=== PATIENT | female | born 1960 | race Caucasian/White ===

== ENCOUNTER → 2017-02-26 | Outpatient (CLI) | payer BC | END | disposition home or self-care (01) | LOC: C.CPL 09:45 | DX: Z01.810 Encounter for preprocedural cardiovascular examination (principal) ==

== ENCOUNTER → 2017-11-11 | Outpatient (CLI) | payer BC | END | disposition home or self-care (01) | LOC: C.RDSM 13:41 | PROVIDERS: ATTEND Orthopaedic Surgery Sports Medicine | DX: M25.562 Pain in left knee (principal) ==